=== PATIENT | male | born 1985 | race African-American/Black ===

== ENCOUNTER 2021-02-15 23:37 | Emergency (ER) | payer OTHER, SELFPAY ==
[2021-02-15] MEDS ORDERED: Lidocaine 1% w/Epinephrine 1:100K 20 ML VIAL ONE (23:42)
[2021-02-15] MEDS ORDERED: Boostrix 0.5 ML (Tdap) VIAL ONE (23:43)
[2021-02-16] MEDS ORDERED: Bacitracin 1 PK ONE (00:13)
[2021-02-16] MEDS ORDERED: Morphine 4 MG/ML VIAL ONE (00:34)
[2021-02-16] MEDS ORDERED: Ondansetron PF 4 MG/2 ML Vial ONE (00:34)
[2021-02-16] MEDS ORDERED: Lidocaine 1% w/Epinephrine 1:100K 20 ML VIAL ONE (00:36)
[2021-02-16] MEDS ORDERED: Ketorolac Tromethamine 15 MG/ML VIAL ONE (01:21)
== END 2021-02-16 01:48 ==
LOC: CSHERS 23:37
DX: S51.812A Laceration without foreign body of left forearm, initial encounter (principal); F17.210 Nicotine dependence, cigarettes, uncomplicated; W54.0XXA Bitten by dog, initial encounter
CPT/HCPCS: 12001; 12035; 12051; 90471; 90715; 96365; 96375; J0690; J1885; J2270; J2405